=== PATIENT | female | born 2000 | race African-American/Black ===

== ENCOUNTER 2019-03-27 00:26 | Inpatient (IN) ==
[2019-03-27] MEDS ORDERED: LACTATED RINGERS 1,000 ML IV SCH ×3 (01:00→19:30)
[2019-03-27] MEDS: ONDANSETRON 4 MG/2 ML VIAL IV PRN ×3 (01:10→20:38)
[2019-03-27] MEDS: BUTORPHANOL 2 MG/ML VIAL IV PRN ×3 (01:10→20:38)
[2019-03-27] MEDS ORDERED: LACTATED RINGERS 1,000 ML IV PRN (05:18)
[2019-03-27] MEDS ORDERED: MEPERIDINE 50 MG/1 ML VIAL IM PRN (08:50)
[2019-03-27] MEDS ORDERED: LIDOCAINE 1% 50 ML VIAL MISC INJ ONE (08:50)
[2019-03-27] MEDS ORDERED: miSOPROStoL 200 MCG TABLET VAG PRN (08:50)
[2019-03-27] MEDS ORDERED: DINOPROSTONE VAG GEL 10 MG SYRINGE VAG ONE (08:56)
[2019-03-27 09:11] LABS: Basophils % 0.4 % (0.0-0.8); Eosinophils # 0.1 10*3/uL (0.0-0.87); Eosinophils % 2.7 % (0.00-10.9); Hematocrit 30.3 VOL% (35.7-47.0); Immature Granulocytes % 0.6 %; Immature Granulocytes Absolute 0.03 #; Lymphocytes # 1.5 10*3/uL (1.4-4.0); Lymphocytes % 30.1 % (21.3-54.2); Mean Corpuscular Volume 87.3 FL (87-102); Mean Platelet Volume 10.4 FL (9.6-12.0); Monocytes % 9.6 % (1.7-12.7); Neutrophils % 56.6 % (38.7-73.9); Platelet Count 161 T/CUMM (130-400); Red Blood Count 3.47 MC/CUMM (3.8-5.5); Red Cell Distribution Width 13.4 % (9.3-17.3); White Blood Count 4.9 T/CUMM (4-12)
[2019-03-27 09:25] LABS: Albumin 2.6 G/DL (3.4-5.0); Bilirubin,Total 0.4 MG/DL (0.2-1.0); Calcium 8.5 MG/DL (8.5-10.1); Osmolality,Calculated 277.3 MOS/KG (273-304); Total Protein 6.5 G/DL (6.4-8.3)
[2019-03-27] MEDS ORDERED: AMPICILLIN INJ 2,000 MG in SODIUM CHLORIDE 0.9% 100 ML IV ONE (12:37)
[2019-03-27] MEDS: AMPICILLIN INJ 1,000 MG in SODIUM CHLORIDE 0.9% 100 ML IV SCH (17:03)
[2019-03-27] MEDS ORDERED: LACTATED RINGERS 1,000 ML IV ONE (19:11)
[2019-03-27] MEDS ORDERED: FAMOTIDINE 20 MG/2 ML VIAL IV ONE (19:11)
[2019-03-27] MEDS ORDERED: CITRIC ACID/SODIUM CITRATE 30 ML UDCUP PO ONE (19:11)
[2019-03-27] MEDS ORDERED: ePHEDrine 50 MG/ML AMP IV PRN (19:11)
[2019-03-27] MEDS ORDERED: diphenhydrAMINE 50 MG/1 ML VIAL IV PRN ×2 (19:12)
[2019-03-27] MEDS ORDERED: NALOXONE 0.4 MG/ML VIAL IV PRN (19:12)
[2019-03-27] MEDS ORDERED: PROMETHAZINE 25 MG/1 ML VIAL IM ONE (19:12)
[2019-03-27] MEDS ORDERED: hydrOXYzine HCL 25 MG/1 ML VIAL IM PRN (19:12)
[2019-03-27] MEDS ORDERED: fentaNYL 2 MCG/ROPIV 0.2% EPID 100 ML EPIDURAL SCH (19:30)
[2019-03-28] MEDS: BUTORPHANOL 2 MG/ML VIAL IV PRN (00:20)
[2019-03-28] MEDS: AMPICILLIN INJ 1,000 MG in SODIUM CHLORIDE 0.9% 100 ML IV SCH ×2 (00:42→07:00)
[2019-03-28] MEDS ORDERED: OXYTOCIN/LR 20 UNIT/1,000 ML BAG IV SCH (02:00)
[2019-03-28 08:47] LABS: Cord Arterial Blood HCO3 20.1 MMOL/L
[2019-03-28 08:50] LABS: Cord Venous Blood HCO3 21.7 MMOL/L; Cord Venous Blood PO2 30.5
[2019-03-28] MEDS ORDERED: BENZOCAINE 20%/MENTHOL 0.5% SPRAY 56 GM CAN TOP PRN (11:41)
[2019-03-28] MEDS ORDERED: HYDROCORTISONE 2.5% RECTAL CREAM 30 GM TUBE TOP PRN (11:41)
[2019-03-28] MEDS ORDERED: DIPH/TET/ACEL PERT BOOSTER VACCINE 0.5 ML VIAL IM ONE (11:41)
[2019-03-28] MEDS ORDERED: LANOLIN 50% CREAM 0.3 OZ TUBE TOP PRN (11:41)
[2019-03-28] MEDS ORDERED: RHO(D) IMMUNE GLOBULIN 300 MCG SYRINGE IM ONE (11:41)
[2019-03-28] MEDS ORDERED: ACETAMINOPHEN 325 MG TABLET PO PRN (11:41)
[2019-03-28] MEDS ORDERED: WITCH HAZEL PADS 100/JAR TOP PRN (11:41)
[2019-03-28] MEDS ORDERED: MEASLES/MUMPS/RUBELLA VACCINE 0.5 ML VIAL SUBCUT ONE (11:41)
[2019-03-28] MEDS ORDERED: BISACODYL 10 MG SUPP RECTAL PRN (11:41)
[2019-03-28] MEDS: oxyCODONE/ACETAMINOPHEN 5-325 MG TABLET PO PRN ×2 (12:00→18:53)
[2019-03-28] MEDS: IBUPROFEN 800 MG TABLET PO PRN ×3 (12:00→18:53)
[2019-03-28] MEDS: DOCUSATE SODIUM 100 MG CAPSULE PO SCH (21:51)
[2019-03-29 04:59] LABS: Basophils % 0.5 % (0.0-0.8); Eosinophils # 0.2 10*3/uL (0.0-0.87); Eosinophils % 2.5 % (0.00-10.9); Hematocrit 26.9 VOL% (35.7-47.0); Hemoglobin 8.8 GM/DL (12.0-16.0); Immature Granulocytes % 0.6 %; Immature Granulocytes Absolute 0.04 #; Lymphocytes # 2.1 10*3/uL (1.4-4.0); Mean Corpuscular HGB Conc 32.7 GM/DL (32-36); Mean Corpuscular Volume 86.8 FL (87-102); Mean Platelet Volume 10.9 FL (9.6-12.0); Monocytes % 12.3 % (1.7-12.7); Neutrophils % 51.1 % (38.7-73.9); Platelet Count 163 T/CUMM (130-400); Red Cell Distribution Width 13.2 % (9.3-17.3); White Blood Count 6.5 T/CUMM (4-12)
[2019-03-29] MEDS ORDERED: INFLUENZA VIRUS VACCINE 0.5 ML SYRINGE IM ONE (09:20)
[2019-03-29] MEDS: IBUPROFEN 800 MG TABLET PO PRN ×2 (09:39→15:45)
[2019-03-29] MEDS: oxyCODONE/ACETAMINOPHEN 5-325 MG TABLET PO PRN ×2 (09:39→15:45)
[2019-03-29] MEDS: DOCUSATE SODIUM 100 MG CAPSULE PO SCH ×3 (09:39→21:01)
[2019-03-29] MEDS: FERROUS SULFATE 325 MG TABLET PO SCH ×2 (09:40→21:01)
[2019-03-30] MEDS: IBUPROFEN 800 MG TABLET PO PRN ×2 (00:07→10:24)
[2019-03-30] MEDS: oxyCODONE/ACETAMINOPHEN 5-325 MG TABLET PO PRN ×2 (00:07→10:22)
[2019-03-30] MEDS ORDERED: INFLUENZA VIRUS VACCINE 0.5 ML SYRINGE IM ONE (09:09)
[2019-03-30] MEDS: FERROUS SULFATE 325 MG TABLET PO SCH (09:45)
[2019-03-30] MEDS: DOCUSATE SODIUM 100 MG CAPSULE PO SCH (09:45)
[2019-03-30 12:08] VITALS: BP 100/64
== END 2019-03-30 15:05 | disposition home or self-care (01) | DRG 560 ==
LOC: N.LDOUT 00:26 → N.LD 00:28 → N.OB 03-28 11:20
PROVIDERS: ADMIT Obstetrics & Gynecology; ATTEND Obstetrics & Gynecology